=== PATIENT | female | born 1970 | race Caucasian/White ===

== ENCOUNTER 2017-05-06 23:54 | Emergency (ER) | payer MEDICAID ==
[~2017-05-06] VITALS: Ht 170.2 cm; Wt 94.0 kg
[~2017-05-06 23:54] MED LIST: ALBU8.5H8 IH; AZIT250T PO; BENZ-38 PO; GUAI-647 PO; LEVO500T2 PO; PRED20TA PO
[2017-05-07] MEDS ORDERED: LORazepam 2 mg/ml vial IM ONE (00:25)
[2017-05-07] MEDS ORDERED: ipratropium/albuterol 3ml nebule NEB ONE (01:25)
[2017-05-07] MEDS ORDERED: dexamethasone 4mg tablet PO STA (01:53)
[2017-05-07] MEDS ORDERED: LORA1TAB PO (02:17)
[2017-05-07 02:23] VITALS: BP 122/80
== END 2017-05-07 02:24 | disposition home or self-care (01) ==
LOC: ER 23:55
DX: J22 Unspecified acute lower respiratory infection (principal); F17.210 Nicotine dependence, cigarettes, uncomplicated; Z86.73 Personal history of transient ischemic attack (TIA), and cerebral infarction without residual deficits; Z88.8 Allergy status to other drugs, medicaments and biological substances; Z79.2 Long term (current) use of antibiotics
CPT/HCPCS: 94640; 94760; 96372; 99283; J2060; J8540

== ENCOUNTER 2017-08-13 18:10 | Emergency (ER) | payer MEDICAID ==
[~2017-08-13] VITALS: Ht 170.2 cm; Wt 95.3 kg
[~2017-08-13 18:10] MED LIST changes: -BENZ-38 PO; -GUAI-647 PO; +HYDR-565 PO; -LEVO500T2 PO; -PRED20TA PO; +WALKERFR
[2017-08-13 18:43] VITALS: BP 104/67
== END 2017-08-13 21:38 | disposition home or self-care (01) ==
LOC: ER 18:10
DX: M25.562 Pain in left knee (principal); Z79.899 Other long term (current) drug therapy
CPT/HCPCS: 73564; 73590; 93971; 99284

== ENCOUNTER 2017-11-10 02:17 | Emergency (ER) | payer MEDICAID ==
[~2017-11-10] VITALS: Ht 170.2 cm; Wt 89.0 kg
[~2017-11-10 02:17] MED LIST changes: -HYDR-565 PO
[2017-11-10 04:45] LABS: BASOPHILS % (AUTO) 0.1 % (0-1); EOSINOPHILS # (AUTO) 0.3 X10'3 (0-0.9); EOSINOPHILS % (AUTO) 4.3 % (0-6); HEMATOCRIT 39.1 % (35.0-45.0); HEMOGLOBIN 13.3 g/dl (12.0-16.0); LYMPHOCYTES # (AUTO) 1.7 X10'3 (1.1-4.8); LYMPHOCYTES % (AUTO) 24.8 % (21-51); MEAN CORPUSCULAR HGB CONC 33.9 % (33.0-36.5); MEAN CORPUSCULAR VOLUME 88.4 FL (78-98); MEAN PLATELET VOLUME 9.2 FL (7.4-10.4); MONOCYTES # (AUTO) 0.4 X10'3 (0-0.9); MONOCYTES % (AUTO) 5.4 % (2-12); NEUTROPHILS # (AUTO) 4.4 X10'3 (1.8-7.7); NEUTROPHILS % (AUTO) 65.4 % (42-75); PLATELET COUNT 255 X10'3 (140-440); RED BLOOD COUNT 4.43 X10'6 (4.20-5.60); WHITE BLOOD COUNT 6.8 X10'3 (4.5-11.0)
[2017-11-10 04:49] LABS: CLARITY,URINE CLEAR (Clear); COLOR,URINE YELLOW (Yellow); GLUCOSE, URINE NEGATIVE (Neg); KETONES,URINE NEGATIVE (Neg); LEUKOCYTE ESTERASE ,URINE NEGATIVE (Neg); NITRITES, URINE NEGATIVE (Neg); OCCULT BLOOD,URINE NEGATIVE (Neg); PROTEIN,URINE NEGATIVE (Neg); UROBILINOGEN,URINE 0.2 E.U/dL (0.2-1.0)
[2017-11-10 04:54] LABS: UA COLLECTION TYPE CLN CATCH MIDSTREAM
[2017-11-10 05:11] LABS: ALANINE AMINOTRANSFERASE 23 U/L (12-78); ALBUMIN 3.7 G/DL (3.4-5.0); ALBUMIN/GLOBULIN RATIO 1.2 (1.1-1.5); ALKALINE PHOSPHATASE 68 IU/L (46-116); ANION GAP 9 (8-16); ASPARTATE AMINO TRANSFERASE 12 U/L (10-37); BILIRUBIN,TOTAL 0.3 MG/DL (0.1-1.0); BLOOD UREA NITROGEN 12 MG/DL (7-18); BUN/CREATININE RATIO 13.6 (6.6-38.0); CALCIUM 8.8 MG/DL (8.5-10.1); CHLORIDE 110 MMOL/L (99-107); CREATININE 0.88 MG/DL (0.40-0.90); GLUCOSE 83 MG/DL (70-104); POTASSIUM 3.4 MMOL/L (3.5-5.1); SODIUM 140 MMOL/L (135-145); TOTAL CARBON DIOXIDE 21.3 MMOL/L (24-32); TOTAL PROTEIN 6.9 G/DL (6.4-8.2); eGFR 69 ML/MIN
[2017-11-10 05:12] LABS: D-DIMER 0.47 MG/L FEU (0-0.50); PARTIAL THROMBOPLASTIN TIME 30 SECONDS (22-32); PROTHROMBIN TIME 10.5 SECONDS (9.0-12.0)
[2017-11-10] MEDS ORDERED: potassium Cl 20 mEq SR tablet PO ONE (05:25)
[2017-11-10] MEDS ORDERED: magnesium oxide 400mg tablet PO ONE (05:25)
[2017-11-10 05:35] VITALS: BP 121/72
== END 2017-11-10 05:41 | disposition home or self-care (01) ==
LOC: ER 02:18
DX: R60.0 Localized edema (principal); F17.200 Nicotine dependence, unspecified, uncomplicated; I48.91 Unspecified atrial fibrillation; Z86.73 Personal history of transient ischemic attack (TIA), and cerebral infarction without residual deficits; Z86.718 Personal history of other venous thrombosis and embolism; Z95.0 Presence of cardiac pacemaker; Z98.890 Other specified postprocedural states; Z79.899 Other long term (current) drug therapy
CPT/HCPCS: 36415; 80053; 81003; 85025; 85379; 85610; 85730; 93005; 99285

== ENCOUNTER 2019-01-10 16:40 | Emergency (ER) | payer MEDICAID ==
[~2019-01-10] VITALS: Ht 170.2 cm; Wt 90.9 kg
[2019-01-10 18:09] VITALS: BP 105/74
[2019-01-10] MEDS ORDERED: ipratropium/albuterol 3ml nebule NEB ONE (20:55)
[2019-01-10] MEDS ORDERED: AZIT250T PO (21:01)
[2019-01-10] MEDS ORDERED: ALBU18HF2 INH (21:01)
== END 2019-01-10 22:03 | disposition home or self-care (01) ==
LOC: ER 16:41
DX: J22 Unspecified acute lower respiratory infection (principal); I48.91 Unspecified atrial fibrillation; Z71.6 Tobacco abuse counseling; Z86.718 Personal history of other venous thrombosis and embolism; Z86.73 Personal history of transient ischemic attack (TIA), and cerebral infarction without residual deficits; Z95.0 Presence of cardiac pacemaker; Z98.890 Other specified postprocedural states; Z79.2 Long term (current) use of antibiotics; Z79.899 Other long term (current) drug therapy
CPT/HCPCS: 71046; 94640; 94760; 99283

== ENCOUNTER 2019-10-20 01:04 | Emergency (ER) | payer MEDICAID ==
[~2019-10-20] VITALS: Ht 170.2 cm; Wt 81.8 kg
[~2019-10-20 01:04] MED LIST changes: +ALBU18HF2 INH
[2019-10-20 01:11] VITALS: BP 124/79
[2019-10-20] MEDS ORDERED: HYDROcodone/acetaminophen 5mg/325mg tablet PO ONE (02:25)
[2019-10-20] MEDS ORDERED: silver sulfadiazine cream 50gm TP SCH (08:00)
[2019-10-20] MEDS ORDERED: silver sulfadiazine cream 400gm jar TP SCH (08:00)
== END 2019-10-20 02:39 | disposition home or self-care (01) ==
LOC: ER 01:05
DX: T21.22XA Burn of second degree of abdominal wall, initial encounter (principal); I48.91 Unspecified atrial fibrillation; Z86.73 Personal history of transient ischemic attack (TIA), and cerebral infarction without residual deficits; Z86.718 Personal history of other venous thrombosis and embolism; Z86.69 Personal history of other diseases of the nervous system and sense organs; Z98.890 Other specified postprocedural states; Z95.0 Presence of cardiac pacemaker; Z79.899 Other long term (current) drug therapy; X08.8XXA Exposure to other specified smoke, fire and flames, initial encounter; Y93.89 Activity, other specified; Y92.89 Other specified places as the place of occurrence of the external cause; Y99.8 Other external cause status
CPT/HCPCS: 16000; 99283

== ENCOUNTER 2024-03-27 20:25 | Emergency (ER) | payer MEDICAID ==
[~2024-03-27] VITALS: Ht 172.7 cm; Wt 90.9 kg
[~2024-03-27 20:25] MED LIST changes: +ALBU8.5H17 IH; -ALBU8.5H8 IH
[2024-03-27 20:28] VITALS: BP 119/77; PULSE 93; O2SAT 98
[2024-03-27 21:46] VITALS: RESP 20
[2024-03-27] MEDS ORDERED: AZIT-164 PO (22:15)
[2024-03-27] MEDS ORDERED: AMOX-419 PO (22:15)
[2024-03-27 22:33] VITALS: TEMP 98.7
[2024-03-27] MEDS: amox tr/potassium clavulanate 500mg/125mg TAB PO ONE (22:46)
== END 2024-03-27 22:50 | disposition home or self-care (01) ==
LOC: ER 20:25
DX: J22 Unspecified acute lower respiratory infection (principal); I48.91 Unspecified atrial fibrillation; Z79.899 Other long term (current) drug therapy; Z86.718 Personal history of other venous thrombosis and embolism; Z86.73 Personal history of transient ischemic attack (TIA), and cerebral infarction without residual deficits; Z95.0 Presence of cardiac pacemaker; Z98.890 Other specified postprocedural states
CPT/HCPCS: 99283

== ENCOUNTER 2024-05-11 17:57 | Emergency (ER) | payer MEDICAID ==
[~2024-05-11] VITALS: Ht 172.7 cm; Wt 96.5 kg
[2024-05-11] MEDS: ketorolac trometh 30MG/ML vial 30 MG/ML VIAL IM ONE (20:25)
[2024-05-11] MEDS ORDERED: PRED20TA PO (21:04)
[2024-05-11] MEDS ORDERED: PROM25TA14 PO (21:04)
[2024-05-11 21:16] VITALS: BP 126/83; PULSE 71; RESP 16; TEMP 98.5; O2SAT 100
== END 2024-05-11 21:17 | disposition home or self-care (01) ==
LOC: ER 17:58
DX: J11.1 Influenza due to unidentified influenza virus with other respiratory manifestations (principal); I48.91 Unspecified atrial fibrillation; U07.1 COVID-19; Z86.73 Personal history of transient ischemic attack (TIA), and cerebral infarction without residual deficits; Z95.0 Presence of cardiac pacemaker; Z98.890 Other specified postprocedural states
CPT/HCPCS: 36415; 71045; 87502; 87503; 87811; 96372; 99284; J1885